=== PATIENT | male | born 1995 | race Caucasian/White ===

== ENCOUNTER 2018-03-09 16:30 | Emergency (ER) | payer SELFPAY ==
[2018-03-09] MEDS: ONDANSETRON (ODT) 4 MG TAB ODT (17:15)
[2018-03-09] MEDS: KETOROLAC 60 MG INJ IM (17:15)
[2018-03-09] MEDS: MECLIZINE 12.5 MG TAB PO (17:15)
== END 2018-03-09 17:30 | disposition home or self-care (01) ==
LOC: FTE 16:30
DX: R51 Headache (principal); R11.0 Nausea; F17.210 Nicotine dependence, cigarettes, uncomplicated
CPT/HCPCS: 82962; 96372; 99284-25

== ENCOUNTER 2018-06-29 18:00 | Emergency (ER) | payer SELFPAY ==
[2018-06-29] MEDS: ACETAMINOPHEN 325 MG TAB PO (19:32)
[2018-06-29] MEDS: LIDOCAINE 1% (MDV) 20 ML INJ SC (19:33)
== END 2018-06-29 20:21 | disposition home or self-care (01) ==
LOC: FTE 18:00
DX: L60.0 Ingrowing nail (principal); F17.210 Nicotine dependence, cigarettes, uncomplicated
CPT/HCPCS: 11765; 99283-25